=== PATIENT | female | born 1955 | race Caucasian/White ===

== ENCOUNTER → 2018-10-24 | Outpatient (CLI) | payer MEDICARE ==
[~2018-10-24] MED LIST: ESCI10TA10 PO; LISI-167 PO; METF850T10 PO; OMEP20TA62 PO; ROSU5TAB PO; UBID100C10 PO
[2018-10-24 11:36] LABS: BASOPHILS # (AUTO) 0.04 x10^3/uL (0-0.1); BASOPHILS % (AUTO) 1 % (0-1); EOSINOPHILS # (AUTO) 0.15 x10^3/uL (0-0.4); EOSINOPHILS % (AUTO) 2 % (1-7); LYMPHOCYTES # (AUTO) 2.94 x10^3/uL (1-3.4); LYMPHOCYTES % (AUTO) 39 % (22-44); MD NO; MEAN CORPUSCULAR HEMOGLOBIN 26.6 pg (27.0-34.8); MEAN CORPUSCULAR HGB CONC 33.2 g/dL (32.4-35.8); MEAN CORPUSCULAR VOLUME 80.2 fL (80-100); MEAN PLATELET VOLUME 7.9 fL (7.4-10.4); MONOCYTES # (AUTO) 0.32 x10^3/uL (0.2-0.8); MONOCYTES % (AUTO) 4 % (2-9); NEUTROPHILS # (AUTO) 4.08 x10^3/uL (1.8-6.8); NEUTROPHILS % (AUTO) 54 % (42-75); PLATELET COUNT 233 x10^3/uL (130-400); RED BLOOD COUNT 5.89 x10^6/uL (3.82-5.3); RED CELL DISTRIBUTION WIDTH 15.9 % (9.6-15.2)
[2018-10-24 11:41] LABS: INTERNATIONAL NORMALIZED RATIO 1.05 (0.93-1.1)
[2018-10-24 11:42] LABS: ALANINE AMINOTRANSFERASE 58 U/L (12-78); ANION GAP 7 mmol/L (5-15); CALCIUM 10.5 mg/dL (8.5-10.1); CHLORIDE 109 mmol/L (98-107); CREATININE 1.01 mg/dL (0.55-1.02)
[2018-10-24 11:44] LABS: ALKALINE PHOSPHATASE 142 U/L (45-117); BILIRUBIN,TOTAL 0.7 mg/dL (0.2-1.0); TOTAL PROTEIN 7.4 g/dL (6.4-8.2)
== END | disposition home or self-care (01) ==
LOC: STAR 10:36
PROVIDERS: ATTEND Neurological Surgery
DX: Z01.811 Encounter for preprocedural respiratory examination (principal); M47.22 Other spondylosis with radiculopathy, cervical region; E11.9 Type 2 diabetes mellitus without complications
CPT/HCPCS: 36415; 71046; 80053; 85025; 85610; 85730; 93005

== ENCOUNTER 2018-11-10 09:43 | Emergency (ER) | payer MEDICARE ==
[~2018-11-10 09:43] MED LIST changes: +HYDR-3240 PO; +METH750T87 PO
--- NOTE | 2018-11-10 10:33 | NUR ---
Pt presents to ED for SOB. Pt day 4 post op neck surg for bulging discs. DC from hospital yesterday. Increasing SOB and anxiety/restlessness yesterday and today. Upper back pain started today. Lungs CTA, 94-96%RA. Surgical incisions clean and dry.
[2018-11-10 10:40] LABS: BASOPHILS # (AUTO) 0.04 x10^3/uL (0-0.1); BASOPHILS % (AUTO) 0 % (0-1); EOSINOPHILS # (AUTO) 0.03 x10^3/uL (0-0.4); EOSINOPHILS % (AUTO) 0 % (1-7); LYMPHOCYTES # (AUTO) 1.98 x10^3/uL (1-3.4); LYMPHOCYTES % (AUTO) 18 % (22-44); MD NO; MEAN CORPUSCULAR HEMOGLOBIN 26.8 pg (27.0-34.8); MEAN CORPUSCULAR HGB CONC 33.2 g/dL (32.4-35.8); MEAN CORPUSCULAR VOLUME 80.7 fL (80-100); MEAN PLATELET VOLUME 8.4 fL (7.4-10.4); MONOCYTES # (AUTO) 0.62 x10^3/uL (0.2-0.8); MONOCYTES % (AUTO) 6 % (2-9); NEUTROPHILS # (AUTO) 8.64 x10^3/uL (1.8-6.8); NEUTROPHILS % (AUTO) 76 % (42-75); PLATELET COUNT 245 x10^3/uL (130-400); RED BLOOD COUNT 5.68 x10^6/uL (3.82-5.3); RED CELL DISTRIBUTION WIDTH 15.8 % (9.6-15.2)
[2018-11-10 10:57] LABS: ALANINE AMINOTRANSFERASE 31 U/L (12-78); ALBUMIN 3.8 g/dL (3.4-5.0); ANION GAP 9 mmol/L (5-15); CALCIUM 10.2 mg/dL (8.5-10.1); CHLORIDE 107 mmol/L (98-107); CREATININE 0.81 mg/dL (0.55-1.02)
[2018-11-10 11:01] LABS: ALKALINE PHOSPHATASE 123 U/L (45-117); BILIRUBIN,TOTAL 0.8 mg/dL (0.2-1.0); TROPONIN I < 0.015 ng/mL (0.000-0.045)
[2018-11-10 11:46] VITALS: BP 159/94
== END 2018-11-10 12:11 | disposition home or self-care (01) ==
LOC: ED 10:13
DX: R06.00 Dyspnea, unspecified (principal); R07.9 Chest pain, unspecified
CPT/HCPCS: 36415; 71045; 80053; 83880; 84484; 85025; 93005; 99284

== ENCOUNTER 2020-01-05 06:07 | Emergency (ER) | payer MEDICARE ==
[~2020-01-05] VITALS: Ht 156.2 cm; Wt 73.3 kg
--- NOTE | 2020-01-05 07:14 | NUR ---
first contact with pt. pt c/o feeling her heart beat fast and headache started midnight. states her BP is high. + nausea. pt's aox4. resps even and unlabored. all monitors in place. 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 call light within reach.
[2020-01-05 07:26] LABS: BASOPHILS # (AUTO) 0.02 x10^3/uL (0-0.1); BASOPHILS % (AUTO) 0 % (0-1); EOSINOPHILS % (AUTO) 1 % (1-7); LYMPHOCYTES # (AUTO) 2.73 x10^3/uL (1-3.4); LYMPHOCYTES % (AUTO) 34 % (22-44); MD NO; MEAN CORPUSCULAR HEMOGLOBIN 26.3 pg (27.0-34.8); MEAN CORPUSCULAR HGB CONC 32.6 g/dL (32.4-35.8); MEAN CORPUSCULAR VOLUME 80.7 fL (80-100); MEAN PLATELET VOLUME 8.4 fL (7.4-10.4); MONOCYTES # (AUTO) 0.38 x10^3/uL (0.2-0.8); MONOCYTES % (AUTO) 5 % (2-9); NEUTROPHILS # (AUTO) 4.85 x10^3/uL (1.8-6.8); NEUTROPHILS % (AUTO) 60 % (42-75); PLATELET COUNT 230 x10^3/uL (130-400); RED CELL DISTRIBUTION WIDTH 16.5 % (9.6-15.2)
[2020-01-05 07:27] LABS: ALBUMIN 3.9 g/dL (3.4-5.0); ANION GAP 5 mmol/L (5-15); CALCIUM 10.4 mg/dL (8.5-10.1); CHLORIDE 110 mmol/L (98-107); CREATININE 1.05 mg/dL (0.55-1.02)
[2020-01-05 07:32] LABS: TROPONIN I < 0.015 ng/mL (0.000-0.045)
--- NOTE | 2020-01-05 07:51 | NUR ---
edmd at bedside to explain all results at this time.
[2020-01-05 07:58] VITALS: BP 149/99
--- NOTE | 2020-01-05 07:58 | NUR ---
Patient given discharge instructions and they have confirmed that they understand the instructions. Patient ambulatory with steady gait.
== END 2020-01-05 07:59 | disposition home or self-care (01) ==
LOC: ED 06:30
DX: R00.2 Palpitations (principal); R51 Headache; Z87.891 Personal history of nicotine dependence; I10 Essential (primary) hypertension
CPT/HCPCS: 36415; 80048; 82040; 83735; 84443; 84484; 85025; 93005; 99284

== ENCOUNTER 2020-04-02 11:38 | Inpatient (IN) | payer MEDICARE ==
[~2020-04-02] VITALS: Ht 154.9 cm; Wt 73.5 kg
--- NOTE | 2020-04-02 12:14 | NUR ---
PT PRESENTS TO ED WITH C/O MIDLINE LOWER ABD PAIN X 3 HRS ACCOMPANIED BY BLOODY DIARRHEA. PT REPORTS SHE HAS HAD SIMILAR EPISODES IN THE PAST BUT NOT WITH THIS EXENT OF BLOOD. PT HAS HX COLITIS REQUIRING HOSPITALIZATION, SISTER HAS DX OF ULCERATIVE COLITIS. PT IS A&O, RESPS EVEN AND UNLABORED. NO DIARRHEA AT THIS TIME. PT REPORTS MILD NAUSEA BUT NO VOMITING. SKIN NORMAL COLOR FOR ETHNICITY. SHITAL GASPAR AT BEDSIDE FOR INITIAL ASSESSMENT.
[2020-04-02] MEDS ORDERED: SODIUM CHLORIDE FLUSH 10ML SYR IVF ONE (12:30)
[2020-04-02] MEDS ORDERED: SODIUM CHLORIDE 0.9% 1,000ML IVBOLUS ONE (12:30)
[2020-04-02] MEDS ORDERED: MORPHINE SULFATE 4 MG/ML, 1ML IVPush PRN (12:30)
[2020-04-02] MEDS ORDERED: ONDANSETRON 2MG/ML, 2ML IVPush ONE (12:30)
[2020-04-02 12:38] LABS: MEAN CORPUSCULAR HEMOGLOBIN 26.2 pg (27.0-34.8); MEAN CORPUSCULAR HGB CONC 32.1 g/dL (32.4-35.8); MEAN PLATELET VOLUME 8.2 fL (7.4-10.4); PLATELET COUNT 241 x10^3/uL (130-400); RED BLOOD COUNT 6.34 x10^6/uL (3.82-5.3); RED CELL DISTRIBUTION WIDTH 18.7 % (9.6-15.2)
[2020-04-02 12:49] LABS: ALANINE AMINOTRANSFERASE 50 U/L (12-78); ANION GAP 6 mmol/L (5-15); CALCIUM 10.9 mg/dL (8.5-10.1); CHLORIDE 110 mmol/L (98-107); CREATININE 1.44 mg/dL (0.55-1.02)
[2020-04-02] MEDS ORDERED: MORPHINE SULFATE 4 MG/ML, 1ML ONE (12:50)
[2020-04-02] MEDS ORDERED: ONDANSETRON 2MG/ML, 2ML ONE (12:50)
[2020-04-02 12:51] LABS: ALKALINE PHOSPHATASE 113 U/L (45-117); BILIRUBIN,TOTAL 1.2 mg/dL (0.2-1.0); TOTAL PROTEIN 7.4 g/dL (6.4-8.2)
[2020-04-02 13:00] LABS: BASOPHILS # (AUTO) 0.03 x10^3/uL (0-0.1); BASOPHILS % (AUTO) 0 % (0-1); EOSINOPHILS # (AUTO) 0.02 x10^3/uL (0-0.4); EOSINOPHILS % (AUTO) 0 % (1-7); LYMPHOCYTES # (AUTO) 1.03 x10^3/uL (1-3.4); LYMPHOCYTES % (AUTO) 6 % (22-44); MD SCAN; MONOCYTES # (AUTO) 0.53 x10^3/uL (0.2-0.8); MONOCYTES % (AUTO) 3 % (2-9); NEUTROPHILS # (AUTO) 16.81 x10^3/uL (1.8-6.8); NEUTROPHILS % (AUTO) 91 % (42-75)
--- NOTE | 2020-04-02 13:07 | NUR ---
PIV PLACED, PT MEDICATED PER EMAR. PT REQUESTS TO ONLY HAVE 2 MG MORPHINE. 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 BP AND SPO2 MONITORS IN PLACE. CALL LIGHT IN REACH. PT A&O, RESPS EVEN AND UNLABORED. AWAITING CT AND DISPO. BLOODWORK INCLUDING ELEVATED WBC REVIEWED BY SHITAL GASPAR.
[2020-04-02] MEDS ORDERED: OMNIPAQUE 350 MG/ML, 100ML BOTTLE ONE ×2 (13:15→14:47)
--- NOTE | 2020-04-02 13:25 | NUR ---
PT TO CT.
[2020-04-02 13:32] LABS: MICROSCOPIC INDICATED
--- NOTE | 2020-04-02 14:06 | NUR ---
PT REPORTS PAIN RESOLVED. PT A&O, RESPS EVEN AND UNLABORED. AWAITING CT READ AND DISPO.
--- NOTE | 2020-04-02 14:34 | NUR ---
SHITAL Mcadams notified wbc 18, pt positive for UTI. orders for IV abx, lactic acid and blood cultures received. pt resting on gurney, a&o, resps even and unlabored.
[2020-04-02] MEDS ORDERED: CEFTRIAXONE PMX 1GM/50ML 50 ML IV ONE (15:00)
[2020-04-02] MEDS ORDERED: METRONIDAZOLE PMX 500MG/100ML 100 ML IV ONE (15:00)
[2020-04-02] MEDS ORDERED: CEFTRIAXONE PMX 1GM/50ML 50 ML ONE (15:22)
--- NOTE | 2020-04-02 15:27 | NUR ---
REPORT RECEIVED FROM REBECCA RANDLE. PT RESTING ON GURNEY W/ CALL LIGHT IN REACH AND SIDE RAILS UPX2. PT DENIES PAIN. ABX STARTED, BLOOD CULTURE BAND IN PLACE. RESP EVEN AND UNLABORED, LENY.
--- NOTE | 2020-04-02 15:28 | NUR ---
report given to JER Segovia at bedside, pt to receive IV rocephin as blood cx have been drawn x 2.
[2020-04-02] MEDS: CEFTRIAXONE PMX 1GM/50ML 50 ML IV SCH (16:00)
[2020-04-02] MEDS: METRONIDAZOLE PMX 500MG/100ML 100 ML IV SCH (16:00)
[2020-04-02] MEDS ORDERED: HYDROmorphone 2 MG/ML, 1ML IVPush PRN (16:00)
[2020-04-02] MEDS ORDERED: ONDANSETRON 2MG/ML, 2ML IVPush PRN (16:00)
[2020-04-02] MEDS ORDERED: METRONIDAZOLE PMX 500MG/100ML 100 ML ONE (16:20)
[2020-04-02] MEDS: SODIUM CHLORIDE 0.9% 1,000 ML IV SCH ×2 (17:04→23:39)
--- NOTE | 2020-04-02 17:07 | NUR ---
PT RESTING ON [place] W/ CALL LIGHT IN REACH AND SIDE RAILS UPX2. VSS, YAAN. PT PROVIDED W/ CLEAR LIQUID DIET TRAY. DENIES FURTHER NEEDS AT THIS TIME.
--- NOTE | 2020-04-02 18:05 | NUR ---
REPORT GIVEN TO ELINOR RANDLE. PT IS READY FOR TRANSPORT AT THIS TIME.
[2020-04-02 18:41] VITALS: BP 99/59
[2020-04-02] MEDS ORDERED: HYDROmorphone 1 MG/ML, 1ML INJ ONE (20:40)
[2020-04-03] MEDS: METRONIDAZOLE PMX 500MG/100ML 100 ML IV SCH ×4 (00:46→23:50)
[2020-04-03 01:23] VITALS: BP 100/57
[2020-04-03 05:00] LABS: BASOPHILS # (AUTO) 0.03 x10^3/uL (0-0.1); BASOPHILS % (AUTO) 0 % (0-1); EOSINOPHILS # (AUTO) 0.12 x10^3/uL (0-0.4); EOSINOPHILS % (AUTO) 1 % (1-7); LYMPHOCYTES # (AUTO) 2.32 x10^3/uL (1-3.4); LYMPHOCYTES % (AUTO) 22 % (22-44); MD NO; MEAN CORPUSCULAR HGB CONC 31.8 g/dL (32.4-35.8); MEAN PLATELET VOLUME 8.4 fL (7.4-10.4); MONOCYTES # (AUTO) 0.56 x10^3/uL (0.2-0.8); MONOCYTES % (AUTO) 5 % (2-9); NEUTROPHILS # (AUTO) 7.63 x10^3/uL (1.8-6.8); NEUTROPHILS % (AUTO) 72 % (42-75); PLATELET COUNT 181 x10^3/uL (130-400); RED BLOOD COUNT 4.96 x10^6/uL (3.82-5.3); RED CELL DISTRIBUTION WIDTH 18.7 % (9.6-15.2)
[2020-04-03 05:03] LABS: CHLORIDE 114 mmol/L (98-107)
[2020-04-03 05:19] LABS: ALANINE AMINOTRANSFERASE 56 U/L (12-78); ALKALINE PHOSPHATASE 76 U/L (45-117); ANION GAP 3 mmol/L (5-15); BILIRUBIN,TOTAL 0.5 mg/dL (0.2-1.0); CALCIUM 9.4 mg/dL (8.5-10.1); CREATININE 0.87 mg/dL (0.55-1.02); TOTAL PROTEIN 5.7 g/dL (6.4-8.2)
[2020-04-03 07:21] VITALS: BP 144/72
[2020-04-03] MEDS: PANTOPRAZOLE 40 MG IV IVPush SCH (08:13)
[2020-04-03] MEDS: SODIUM CHLORIDE 0.9% 1,000 ML IV SCH ×2 (08:13→16:36)
[2020-04-03] MEDS: ACETAMINOPHEN 325 MG TABLET PO PRN ×2 (09:24→23:54)
[2020-04-03 13:08] VITALS: BP 104/55
[2020-04-03 14:20] LABS: CLOSTRIDIUM DIFFICILE ANTIGEN NEGATIVE; CLOSTRIDIUM DIFFICILE TOXIN NEGATIVE (Negative)
[2020-04-03] MEDS: CEFTRIAXONE PMX 1GM/50ML 50 ML IV SCH (16:37)
[2020-04-03 18:39] VITALS: BP 133/78
[2020-04-04 00:52] VITALS: BP 134/86
[2020-04-04] MEDS: SODIUM CHLORIDE 0.9% 1,000 ML IV SCH ×4 (03:39→15:52)
[2020-04-04 07:17] VITALS: BP 144/78
[2020-04-04] MEDS: METRONIDAZOLE PMX 500MG/100ML 100 ML IV SCH ×3 (07:49→23:50)
[2020-04-04] MEDS: PANTOPRAZOLE 40 MG IV IVPush SCH (07:50)
[2020-04-04 12:14] VITALS: BP 114/76
[2020-04-04] MEDS: CEFTRIAXONE PMX 1GM/50ML 50 ML IV SCH (17:09)
[2020-04-04 18:37] VITALS: BP 144/76
[2020-04-04] MEDS: ACETAMINOPHEN 325 MG TABLET PO PRN (23:54)
[2020-04-05 00:33] VITALS: BP 143/84
[2020-04-05] MEDS: SODIUM CHLORIDE 0.9% 1,000 ML IV SCH (04:29)
[2020-04-05 07:31] VITALS: BP_SYST 160; BP_SYST 161; BP_DIAS 106; BP_DIAS 88
[2020-04-05] MEDS ORDERED: LISINOPRIL 20 MG TABLET PO SCH (09:00)
[2020-04-05] MEDS: PANTOPRAZOLE 40 MG IV IVPush SCH (09:56)
[2020-04-05] MEDS: METRONIDAZOLE PMX 500MG/100ML 100 ML IV SCH (10:06)
[2020-04-05 13:22] VITALS: BP 112/75
[2020-04-05] MEDS ORDERED: AMOX1TAB12 PO (15:31)
== END 2020-04-05 17:07 | disposition home or self-care (01) | DRG 371 ==
LOC: ED 13:19 → EDIP 15:28 → 4NW 18:33 → DCLOUNGE 04-05 16:54
PROVIDERS: ADMIT Internal Medicine; ATTEND Family Medicine
DX: A04.9 Bacterial intestinal infection, unspecified (principal); N17.0 Acute kidney failure with tubular necrosis; E87.2 Acidosis; N39.0 Urinary tract infection, site not specified; K92.1 Melena; E11.9 Type 2 diabetes mellitus without complications; E78.5 Hyperlipidemia, unspecified; E83.52 Hypercalcemia; E86.0 Dehydration; F41.9 Anxiety disorder, unspecified; I10 Essential (primary) hypertension; Z20.828 Contact with and (suspected) exposure to other viral communicable diseases; Z90.710 Acquired absence of both cervix and uterus; Z90.49 Acquired absence of other specified parts of digestive tract; Z85.828 Personal history of other malignant neoplasm of skin
CPT/HCPCS: 36415; 74177; 80053; 81001; 83605; 83690; 84443; 85025; 87040; 87046; 87086; 87324; 87635; 89055; 96361; 96365; 96375; G0378; J0696; J1170; J2405; Q9967; C9113; J2270; J7030

== ENCOUNTER 2020-05-15 15:19 | Emergency (ER) | payer MEDICARE ==
[~2020-05-15] VITALS: Ht 154.9 cm; Wt 71.7 kg
[~2020-05-15 15:19] MED LIST changes: +AMOX1TAB12 PO
--- NOTE | 2020-05-15 15:27 | NUR ---
EKG DONE IN TRIAGE
[2020-05-15] MEDS ORDERED: ASPIRIN 81 MG TABLET CHEW PO ONE (15:30)
--- NOTE | 2020-05-15 16:00 | NUR ---
PT WITH C/O CP/INDIGESTION THAT BEGAN LAST NIGHT AFTER EATING, PT DENIES CARDIAC HX. STATES PAIN PRESENT /, PT ALSO HAVING REFLUX SX. PT DENIES SOB, N/V PT TO ADDISON LUCIO, BP, CONT PULSE OX
[2020-05-15] MEDS ORDERED: MAALOX/HYOSCYAMINE/LIDOCAINE 45 ML BTL ONE (16:08)
[2020-05-15] MEDS ORDERED: ASPIRIN 81 MG TABLET CHEW ONE (16:08)
[2020-05-15 16:24] LABS: BASOPHILS % (AUTO) 1 % (0-1); EOSINOPHILS % (AUTO) 1 % (1-7); LYMPHOCYTES % (AUTO) 30 % (22-44); MEAN CORPUSCULAR HEMOGLOBIN 26.1 pg (27.0-34.8); MEAN CORPUSCULAR HGB CONC 32.8 g/dL (32.4-35.8); MEAN PLATELET VOLUME 7.9 fL (7.4-10.4); MONOCYTES % (AUTO) 6 % (2-9); NEUTROPHILS % (AUTO) 63 % (42-75); PLATELET COUNT 228 x10^3/uL (130-400); RED BLOOD COUNT 5.76 x10^6/uL (3.82-5.3); RED CELL DISTRIBUTION WIDTH 16.4 % (9.6-15.2)
[2020-05-15 16:26] LABS: MD NO
[2020-05-15 16:28] LABS: ANION GAP 2 mmol/L (5-15); CALCIUM 10.7 mg/dL (8.5-10.1); CHLORIDE 110 mmol/L (98-107)
[2020-05-15] MEDS ORDERED: MAALOX/HYOSCYAMINE/LIDOCAINE 45 ML BTL PO ONE (16:30)
[2020-05-15 16:33] LABS: ALANINE AMINOTRANSFERASE 51 U/L (12-78); ALKALINE PHOSPHATASE 115 U/L (45-117); BILIRUBIN,TOTAL 0.5 mg/dL (0.2-1.0); CREATININE 0.94 mg/dL (0.55-1.02); TOTAL PROTEIN 7.5 g/dL (6.4-8.2); TROPONIN I < 0.015 ng/mL (0.000-0.045)
[2020-05-15 17:36] VITALS: BP 121/77
--- NOTE | 2020-05-15 17:38 | NUR ---
ERMD IN TO UPDATE PT ON POC. PT TO DC HOME
== END 2020-05-15 18:32 | disposition home or self-care (01) ==
LOC: ED 18:00
DX: R07.89 Other chest pain (principal); K21.9 Gastro-esophageal reflux disease without esophagitis; I10 Essential (primary) hypertension; E11.9 Type 2 diabetes mellitus without complications; E78.5 Hyperlipidemia, unspecified; Z87.891 Personal history of nicotine dependence
CPT/HCPCS: 36415; 71045; 80053; 84484; 85025; 93005; 99285